=== PATIENT | female | born 1935 | race Caucasian/White ===

== ENCOUNTER → 2016-07-28 | Outpatient (CLI) | payer MEDICARE, OTHER ==
[~2016-07-28] MED LIST: ASPIR 8181 M1 PO; LEVAQUIN750 MG PO; LISINOPRIL-HCT1 EAC3 PO; TIROSINT75 MCG PO; ZOCOR20 MG PO
== END | disposition home or self-care (01) ==
LOC: CDC 11:42
DX: R94.31 Abnormal electrocardiogram [ECG] [EKG] (principal); I10 Essential (primary) hypertension
CPT/HCPCS: 93000

== ENCOUNTER 2017-06-18 15:39 | Inpatient (IN) | payer OTHER ==
[~2017-06-18] VITALS: Ht 154.9 cm; Wt 81.7 kg
[2017-06-18 16:41] LABS: EOSINOPHIL (%) 0.5 % (0-5); EOSINOPHIL COUNT 0.1 K/uL (0-0.3); HEMATOCRIT 32.5 % (36.0-46.0); IMMATURE GRANULOCYTE (%) 0.3 % (0.0-0.7); INSTRUMENT ABS NEUTROPHIL CT 6.3 K/uL; LYMPHOCYTE COUNT 2.2 K/uL (1.0-2.8); MCH 29.6 PG (29.0-34.0); MCHC 36.3 G/DL (30.0-36.0); MCV 81.5 FL (83-99); MONOCYTE (%) 7.5 % (3-12); MONOCYTE COUNT 0.7 K/uL (0-0.8); NEUTROPHIL (%) 67.9 % (45-76); NEUTROPHIL COUNT 6.3 K/uL (1.8-6.4); PLATELET COUNT 229 K/uL (156-360); RBC DIS.WIDTH-CV 11.5 % (11.8-14.6); RBC DIS.WIDTH-SD 33.7 % (39-53); RED BLOOD COUNT 3.99 M/uL (3.80-5.20); WHITE BLOOD COUNT 9.3 K/uL (4.1-10.2)
[2017-06-18 16:44] LABS: CHLORIDE 88 mEq/L (99-109); POTASSIUM 4.2 mEq/L (3.7-5.4); SODIUM 123 mEq/L (136-147)
[2017-06-18 16:46] LABS: GLUCOSE 110 mg/dL (70-99)
[2017-06-18 16:47] LABS: ANION GAP 9 MEQ/L (2-14)
[2017-06-18 16:50] LABS: GFR ESTIMATE (CALCULATED) 51 mL/min/
[2017-06-18 16:51] LABS: UREA NITROGEN (BUN) 25 mg/dL (9-23)
[2017-06-18 16:57] LABS: TROP-I INTERPRETATION NEGATIVE; TROPONIN-I < 0.01 ng/mL (0.0-0.30)
[2017-06-18] MEDS ORDERED: ZITHROMAX250 MG PO (18:10)
[2017-06-18] MEDS ORDERED: PROAIR HFA8.5 GM IH (18:11)
[2017-06-18 18:56] LABS: CHLORIDE 89 mEq/L (99-109); POTASSIUM 3.9 mEq/L (3.7-5.4); SODIUM 124 mEq/L (136-147)
[2017-06-18 18:58] LABS: GLUCOSE 102 mg/dL (70-99)
[2017-06-18 18:59] LABS: ANION GAP 9 MEQ/L (2-14)
[2017-06-18 19:01] LABS: GFR ESTIMATE (CALCULATED) 51 mL/min/
[2017-06-18 19:02] LABS: UREA NITROGEN (BUN) 24 mg/dL (9-23)
[2017-06-18 21:37] VITALS: BP 145/67
[2017-06-19 00:21] VITALS: BP 146/70
[2017-06-19 03:43] VITALS: BP 153/71
[2017-06-19 07:04] LABS: HEMATOCRIT 33.1 % (36.0-46.0); MCH 29.5 PG (29.0-34.0); MCV 82.1 FL (83-99); PLATELET COUNT 217 K/uL (156-360); RBC DIS.WIDTH-CV 11.8 % (11.8-14.6); RBC DIS.WIDTH-SD 35.1 % (39-53); RED BLOOD COUNT 4.03 M/uL (3.80-5.20); WHITE BLOOD COUNT 4.8 K/uL (4.1-10.2)
[2017-06-19 07:38] VITALS: BP 166/69
[2017-06-19 07:39] LABS: ADD MIUA? NO; BILIRUBIN NEGATIVE; BLOOD NEGATIVE; COLOR STRAW ((YELLOW)); GLUCOSE (STRIP) 50; KETONES NEGATIVE; LEUKOCYTES NEGATIVE; NITRITE NEGATIVE; PROTEIN (STRIP) NEGATIVE; SPECIFIC GRAVITY 1.009 (1.000-1.030); UCUL ADDED? NO; UROBILINOGEN 0.2 MG/DL (0.2-1.0)
[2017-06-19 07:40] LABS: ANION GAP 11 MEQ/L (2-14); CHLORIDE 93 MEQ/L (99-109); GFR ESTIMATE (CALCULATED) 57 mL/min/; POTASSIUM 4.6 MEQ/L (3.7-5.4); SAMPLE HEMOLYSIS CHECK 0; SAMPLE ICTERIC CHECK 0; SAMPLE LIPEMIA CHECK 0; SODIUM 128 MEQ/L (136-147); UREA NITROGEN (BUN) 19 mg/dL (9-23)
[2017-06-19 07:41] LABS: GLUCOSE 179 mg/dL (70-99)
[2017-06-19 10:23] LABS: URIC ACID 7.2 mg/dL (3.1-9.2)
[2017-06-19 12:27] VITALS: BP 140/72
[2017-06-19 15:27] LABS: ANION GAP 11 MEQ/L (2-14); CHLORIDE 96 MEQ/L (99-109); GFR ESTIMATE (CALCULATED) 46 mL/min/; GLUCOSE 203 mg/dL (70-99); POTASSIUM 4.4 MEQ/L (3.7-5.4); SAMPLE HEMOLYSIS CHECK 0; SAMPLE ICTERIC CHECK 0; SAMPLE LIPEMIA CHECK 0; SODIUM 132 MEQ/L (136-147); UREA NITROGEN (BUN) 21 mg/dL (9-23)
[2017-06-19 16:55] VITALS: BP 149/69
[2017-06-19 19:26] VITALS: BP 149/67
[2017-06-20 00:34] VITALS: BP 145/79
[2017-06-20 03:20] VITALS: BP 164/74
[2017-06-20 07:08] LABS: ANION GAP 8 MEQ/L (2-14); CHLORIDE 100 MEQ/L (99-109); GFR ESTIMATE (CALCULATED) 51 mL/min/; GLUCOSE 145 mg/dL (70-99); SAMPLE HEMOLYSIS CHECK 0; SAMPLE ICTERIC CHECK 0; SAMPLE LIPEMIA CHECK 0; SODIUM 138 MEQ/L (136-147); UREA NITROGEN (BUN) 26 mg/dL (9-23)
[2017-06-20 07:10] LABS: POTASSIUM 5.3 MEQ/L (3.7-5.4)
[2017-06-20 07:42] VITALS: BP 142/71
[2017-06-20] MEDS ORDERED: LISINOPRIL20 MG PO (14:08)
[2017-06-20] MEDS ORDERED: ZITHROMAX250 MG PO (14:08)
[2017-06-20] MEDS ORDERED: PREDNISONE10 MG PO (14:08)
== END 2017-06-20 15:30 | disposition home or self-care (01) | DRG 191 ==
LOC: EME 15:39 → EDOF 19:39 → 5SOUTH 19:39 → ENRESERV 19:40 → 5SOUTH 21:07
PROVIDERS: Emergency Medicine; Hospitalist; Internal Medicine; Nurse Practitioner Adult Health
DX: J44.1 Chronic obstructive pulmonary disease with (acute) exacerbation (principal); E87.1 Hypo-osmolality and hyponatremia; R09.02 Hypoxemia; E86.0 Dehydration; I10 Essential (primary) hypertension; E03.9 Hypothyroidism, unspecified; E78.5 Hyperlipidemia, unspecified; E86.1 Hypovolemia; Z79.82 Long term (current) use of aspirin; Z87.891 Personal history of nicotine dependence; Z79.899 Other long term (current) drug therapy; Z90.49 Acquired absence of other specified parts of digestive tract; Z80.1 Family history of malignant neoplasm of trachea, bronchus and lung
CPT/HCPCS: 71010; 80048; 80048 91; 81003; 83935; 84300; 84443; 84484; 84550; 85025; 85027; 87070; 87205; 94640; 94640 76; 94760; 94799; 99202; 99281; 99284; J0696; J2920; J2930; J7030